=== PATIENT | male | born 1990 | race African-American/Black ===

== ENCOUNTER 2018-01-05 17:48 | Emergency (ER) | END 2018-01-05 22:24 | disposition home or self-care (01) ==

== ENCOUNTER 2019-01-13 19:16 | Emergency (ER) | payer MEDICAID ==
[~2019-01-13] VITALS: Ht 185.4 cm; Wt 77.3 kg
[~2019-01-13 19:16] MED LIST: HYDR-3980 PO; HYDR-4011 PO; METH500T PO
[2019-01-13 19:36] VITALS: Ht 185.4 cm; Wt 77.3 kg
--- NOTE | 2019-01-13 22:51 | ERD ---
ER Documentation Chief Complaint Chief Complaint LEFT 1 TOE INJURY D/T CANDLE FALLING ON IT HPI 28-year-old male presents with complaint of right first toe pain. States that a candle fell on his toe at 5:30 PM today and since then it is been very painful. He states he has limited range of motion the toe is not able to walk on it. Denies any numbness or tingling. States the pain is 10 out of 10 and worse when walking. Not taking any treatments. Denies past medical history. Denies allergies. Denies medications. Denies surgeries. Denies alcohol, tobacco, drug use. Up to date on vaccines. ROS All systems reviewed and are negative except as per history of present illness. Medications Home Meds Active Scripts Ibuprofen* (Motrin*) 600 Mg Tab, 600 MG PO Q6 for pain, #30 TAB Prov:BURTON PATEL 01/14/19 Hydrocodone/Acetaminophen (Chester 10-325 Tablet) 1 Each Tablet, 1 TAB PO Q6H PRN for PAIN, #12 TAB Prov:PRATEEK DAMON DO 01/05/18 Methocarbamol* (Robaxin*) 500 Mg Tab, 500 MG PO Q6, #10 TAB Prov:JUAN DAO PA-C 11/07/16 Hydrocodone/Acetaminophen (Chester 5-325 Tablet) 1 Each Tablet, 1 EACH PO Q6, #10 TAB Prov:JUAN DAO PA-C 11/07/16 Allergies Allergies: Coded Allergies: No Known Allergy (Unverified , 11/07/16) PMhx/Soc Medical and Surgical Hx: pt denies Medical Hx, pt denies Surgical Hx Hx Alcohol Use: No Hx Substance Use: No Hx Tobacco Use: No Smoking Status: Never smoker FmHx Family History: No diabetes, No coronary disease, No other Physical Exam Vitals Vital Signs Date Temp Pulse Resp B/P (MAP) Pulse Ox O2 O2 Flow FiO2 Time Delivery Rate 01/14/19 98.4 70 20 132/65 98 Room Air 00:38 (87) 01/13/19 97.9 90 16 131/83 100 19:36 (99) Physical Exam Const: No acute distress Head: Atraumatic Eyes: Normal Conjunctiva ENT: Normal External Ears, Nose and Mouth. Neck: Full range of motion. No meningismus. Resp: Clear to auscultation bilaterally Cardio: Regular rate and rhythm, no murmurs Ext: Right toe is nonedematous or erythematous with tenderness to palpation over the dorsal aspect as well as the head of the first metatarsal. Patient has ability to flex and extend toe but with difficulty. Distal sensation intact. Normal cap refill. No bony deformity or lesions on the skin. No cyanosis, or edema. Compartments are soft and warm. Neur: Awake and alert Psych: Normal Mood and Affect Results 24 hrs Current Medications Medications Dose Sig/Sharon Start Time Status Last (Trade) Ordered Route PRN Stop Time Admin Dose Reason Admin 1 tab ONCE ONCE 01/13/19 DC 01/13/19 Acetaminophen PO 23:00 23:00 / 01/13/19 23:01 Hydrocodone Bitart (Chester (5/325)) Ibuprofen 600 mg ONCE ONCE 01/13/19 DC 01/13/19 (Motrin) PO 23:00 22:59 01/13/19 23:01 Procedures/MDM DIAGNOSTIC IMAGING REPORT Patient: JUAN PARISI II : 1990 Age: 28 Sex: M MR #: [id number] DOS: 01/13/19 2256 Ordering MD: BURTON PATEL Location: [facility] Room/Bed: PROCEDURE: XR left great toe 3 views. CLINICAL INDICATION: Trauma to left first toe. TECHNIQUE: Frontal, lateral and oblique views of the left great toe were performed. COMPARISON: Concurrent left foot x-rays. FINDINGS: Normal mineralization and articulation of all visualized bony structures without evidence of acute fracture/malalignment. No joint effusion identified. Mild soft tissue edema of the great toe, most pronounced distally. No identifiable retained radiopaque foreign body. IMPRESSION: 1. No evidence of acute fracture/malalignment. 2. Mild soft tissue edema of the great toe, most pronounced distally. RPTAT: HSAN Physician Krista Date Time Electronically viewed and signed by Physician Krista on 01/13/2019 23:42 xN/ CC: BURTON PATEL [id number] DIAGNOSTIC IMAGING REPORT Patient: JUAN PARISI II : 1990 Age: 28 Sex: M [id number]: 01/13/19 2256 Ordering MD: BURTON PATEL [facility] Room/Bed: PROCEDURE: XR left foot 3 views. CLINICAL INDICATION: Trauma to left first toe. TECHNIQUE: Frontal, lateral and oblique views of the left foot were performed. COMPARISON: Concurrent left great toe x-rays. FINDINGS: Normal mineralization and articulation of all visualized bony structures without evidence of acute fracture/malalignment. No joint effusion identified. Mild soft tissue edema of the great toe, most pronounced distally. No identifiable retained radiopaque foreign body. IMPRESSION: 1. No evidence of acute fracture/malalignment. 2. Mild soft tissue edema of the great toe, most pronounced distally. RPTAT: HSAN Physician Krista Date Time Electronically viewed and signed by Christi Bain Physician on 01/13/2019 23:41 xN/ CC: BURTON PATEL [id number] 28-year-old male presents with complaint of right first toe pain. States that a candle fell on his toe at 5:30 PM today and since then it is been very painful. He states he has limited range of motion the toe is not able to walk on it. Denies any numbness or tingling. States the pain is 10 out of 10 and worse when walking. X-rays were negative for foot or toe fracture..Patient most likely suf fered a contusion Patient was given crutches as well as ice to apply. Patient was given one Chester in the ER and discharged with ibuprofen. I have low suspicion for neurovascular compromise, compartment syndrome, fracture, osteomyelitis, septic joint, or other emergent condition. Patient discharged with strict ER precautions. Patient advised to follow up with PMD. All questions answered at discharge. Departure Diagnosis: Primary Impression: Pain of toe Laterality: left Qualified Codes: M79.675 - Pain in left toe(s) Additional Impression: Injury of toe Encounter type: initial encounter Laterality: left Qualified Codes: S99.922A - Unspecified injury of left foot, initial encounter Condition: BUR[address] Jan 13, 2019 22:51
[2019-01-13] MEDS ORDERED: HYDROCODONE/APAP (5/325) TAB PO ONE (23:00)
[2019-01-13] MEDS ORDERED: IBUPROFEN 600 MG TAB PO ONE (23:00)
[2019-01-14] MEDS ORDERED: IBUP-1542 PO (00:22)
[2019-01-14 00:38] VITALS: BP 132/65; PULSE 70; RESP 20
== END 2019-01-14 00:39 | disposition home or self-care (01) ==
LOC: FTE 19:16
DX: S99.922A Unspecified injury of left foot, initial encounter (principal); W20.8XXA Other cause of strike by thrown, projected or falling object, initial encounter; Y92.9 Unspecified place or not applicable
CPT/HCPCS: 73630; 73660; Z7502; Z7610